=== PATIENT | female | born 1935 | race Caucasian/White ===

== ENCOUNTER 2019-07-31 14:50 | Observation (INO) | payer MEDICARE ==
[~2019-07-31] VITALS: Ht 147.3 cm; Wt 72.6 kg
[~2019-07-31 14:50] MED LIST: ALBU2.5V5 INH; ALBU4ER PO; ALBU90OI PO; ALEN70 PO; Diovan320 MG PO; IPRATROPIUM NEB INH; MONT10T PO; NIAC500ER PO; Pulmicort Fle180 MCG INH; SALM50IP INH
[2019-07-31 15:38] LABS: BASOPHILS PERCENT AUTO 0 % (0-2); EOSINOPHILS ABSOLUTE AUTO 0.01 K/mm3 (0.00-0.68); EOSINOPHILS PERCENT AUTO 0 % (0-6); Hematocrit 22.5 % (33.0-51.0); Hemoglobin 6.3 g/dL (11.5-16.0); IMMATURE GRAN ABSOLUTE AUTO 0.06 K/mm3 (0.00-0.10); IMMATURE GRAN PERCENT AUTO 1 % (0-1); LYMPHOCYTES ABSOLUTE AUTO 0.41 K/mm3 (0.84-5.20); LYMPHOCYTES PERCENT AUTO 5 % (21-46); MONOCYTES ABSOLUTE AUTO 0.58 K/mm3 (0.16-1.47); MONOCYTES PERCENT AUTO 6 % (4-13); Mean Corpuscular HGB 20.4 pg (26.0-34.0); Mean Corpuscular Volume 73 fL (80-100); Mean Platelet Volume 10.1 fL (9.1-12.4); NEUTROPHILS ABSOLUTE AUTO 8.09 K/mm3 (1.96-9.15); NEUTROPHILS PERCENT AUTO 88 % (41-73); NRBC ABSOLUTE 0.03 K/mm3 (0.00-0.02); NRBC Auto 0.3 /100 WBC (0.0-0.2); Platelet Count 280 K/mm3 (150-400); RDW Coefficient Variation 15.9 % (11.7-14.2); RDW Standard Deviation 41.5 fL (35.1-46.3); Red Blood Cell Count 3.09 M/mm3 (3.80-5.20); White Blood Cell Count 9.15 K/mm3 (4.00-11.30)
[2019-07-31 16:01] LABS: Albumin/Globulin Ratio 0.8 (0.8-1.8); Bilirubin, Total 0.4 mg/dL (0.1-1.0); Bun/Creatinine Ratio 27.5 (12.0-20.0); Calcium, Blood 8.4 mg/dL (8.5-10.1); Creatinine, Blood 1.2 mg/dL (0.40-1.00); Globulin, Blood 3.9 g/dL (2.2-4.0); Potassium, Blood 5.4 mmol/L (3.5-5.5); Total Protein, Blood 6.9 g/dL (6.4-8.2); Troponin I 0.041 ng/mL (0.000-0.040)
[2019-07-31] MEDS ORDERED: BUDE10.22 INH (17:21)
[2019-07-31] MEDS ORDERED: Dyazide 37.5-21 EACH PO (17:34)
[2019-07-31] MEDS ORDERED: LOSA50 PO (17:35)
[2019-07-31 19:20] LABS: Percent Saturation 4.1 % (15.0-50.0)
--- NOTE | 2019-07-31 20:56 | NUR ---
PATIENT IS A NEW ADMIT FROM THE ED. AXOX 3 AND ONE ASSIST. PATIENT TRANSFER FROM THE [facility] TO BED WITH TWO ASSIST AND SOB. SPOUSE PRESENT IN ROOM. DENIES CHEST PAIN AND N/V. ON 2L O2 NC STATING 98%. PATIENT ORIENTED TO ROOM AND CALL LIGHT SYSTEM. ONE UNIT PRBC FINISHED IN ED. ED RN REPORTS 20 MG OF LASIX GIVEN IN ED. PATIENT SOB RESOLVED AT REST AND REQUEST TO WATCH TV. CALL LIGHT IN REACH. WILL CONTINUE TO MONITOR.
--- NOTE | 2019-07-31 23:19 | NUR ---
TELEMETRY PLACED. TECH REPORTS SR @82. DENIES CHEST PAIN AND N/V. CALL LIGHT IN REACH.
[2019-08-01 03:50] LABS: BASOPHILS ABSOLUTE AUTO 0.02 K/mm3 (0.00-0.23); BASOPHILS PERCENT AUTO 0 % (0-2); EOSINOPHILS ABSOLUTE AUTO 0.14 K/mm3 (0.00-0.68); EOSINOPHILS PERCENT AUTO 1 % (0-6); Hematocrit 25.9 % (33.0-51.0); Hemoglobin 7.5 g/dL (11.5-16.0); IMMATURE GRAN ABSOLUTE AUTO 0.06 K/mm3 (0.00-0.10); IMMATURE GRAN PERCENT AUTO 1 % (0-1); LYMPHOCYTES ABSOLUTE AUTO 2.17 K/mm3 (0.84-5.20); LYMPHOCYTES PERCENT AUTO 21 % (21-46); MONOCYTES ABSOLUTE AUTO 1.07 K/mm3 (0.16-1.47); MONOCYTES PERCENT AUTO 11 % (4-13); Mean Corpuscular HGB 21.2 pg (26.0-34.0); Mean Corpuscular Volume 73 fL (80-100); Mean Platelet Volume 10.9 fL (9.1-12.4); NEUTROPHILS ABSOLUTE AUTO 6.76 K/mm3 (1.96-9.15); NEUTROPHILS PERCENT AUTO 66 % (41-73); NRBC ABSOLUTE 0.03 K/mm3 (0.00-0.02); NRBC Auto 0.3 /100 WBC (0.0-0.2); Platelet Count 272 K/mm3 (150-400); RDW Coefficient Variation 16.1 % (11.7-14.2); RDW Standard Deviation 42.2 fL (35.1-46.3); Red Blood Cell Count 3.54 M/mm3 (3.80-5.20); White Blood Cell Count 10.22 K/mm3 (4.00-11.30)
[2019-08-01 04:05] LABS: Bun/Creatinine Ratio 24.6 (12.0-20.0); Calcium, Blood 8.4 mg/dL (8.5-10.1); Creatinine, Blood 1.3 mg/dL (0.40-1.00); Potassium, Blood 4.8 mmol/L (3.5-5.5)
--- NOTE | 2019-08-01 04:28 | NUR ---
SHIFT SUMMARY PATIENT HAD NO ACUTE CHANGES OBSERVED THIS SHIFT. AXOX 3AND SBA TO BR. PIV REMAINS INTACT. LIME BOILER REPORTS SR @ 82. DENIES CHEST PAIN, AND N/V. SOB W/EXERTION. ON 2L O2 BITA AND RA AHUMADA. SPOUSE STAYED OVERNIGHT WITH HX OF DEVELOPING ALZHEIMER. PATIENT ANXIOUS ON ADMIT AND SOB WITH TRANSFER FROM [facility] TO BED. NO OTHER EVENTS. [place] AND LEFT HEARING AIDES AT HOME. ED REPORTS ONE UNIT PRBC GIVEN IN ED. PATIENT ABLE TO REST AND WATCH TV. CALL LIGHT IN REACH. BED IN LOWEST POSITION. WILL CONTINUE TO MONITOR UNTIL DAY SHIFT NURSE ASSUMES CARE.
--- NOTE | 2019-08-01 06:22 | NUR ---
BRINE ROOM LABORER REPORTS PATIENT HR INCREASED TO 120. PATIENT NOTED UP TO BR DURING EVENT. BRINE ROOM LABORER MONITOR REPORTS PATIENT CONVERTED TO AFIB 109 FROM NSR. WILL CONTINUE TO MONITOR.
--- NOTE | 2019-08-01 06:52 | NUR ---
CLAM DIGGER REPORTS PATIENT COVERTED TO AFIB 120. HOSPITALIST DR ORTEZ NOTIFED AND ORDERD IV LOPRESSOR 5 MG NOW. CLAM DIGGER NOTIFED AND REPORTS PATIENT CONVERTED BACK TO NSR 79. WILL HOLD IV LOPRESSOR. CONTINUE TO MONITOR.
[2019-08-01] MEDS ORDERED: FERSU300 PO (13:01)
[2019-08-01] MEDS ORDERED: LOSA25 PO (13:01)
[2019-08-01] MEDS ORDERED: FURO40 PO (13:02)
[2019-08-01] MEDS ORDERED: SPIR25 PO (13:02)
--- NOTE | 2019-08-01 15:17 | NUR ---
PATIENT D/C'D TO HOME WITH SPOUSE VIA [employer]. RX MEDICATIONS FAXED TO [facility] AND ARE TO BE DELIEVERED TO PATIENTS HOME. D/C INSTRUCTIONS AND EDUCATIONS DISCUSSED WITH PATIENT AND COPY PROVIDED. PATIENT DENIES ANY FURTHER QUESTIONS OR CONCERNS.
== END 2019-08-01 15:08 | disposition home or self-care (01) ==
LOC: ER 14:50 → MEDS 14:51 → ER 19:01 → MEDS 19:01
PROVIDERS: Emergency Medicine; ADMIT Student in an Organized Health Care Education/Training Program
DX: D50.9 Iron deficiency anemia, unspecified (principal); R06.00 Dyspnea, unspecified; R79.89 Other specified abnormal findings of blood chemistry; J45.909 Unspecified asthma, uncomplicated; R60.9 Edema, unspecified; I12.9 Hypertensive chronic kidney disease with stage 1 through stage 4 chronic kidney disease, or unspecified chronic kidney disease; N18.3 Chronic kidney disease, stage 3 (moderate); E78.5 Hyperlipidemia, unspecified; Z88.6 Allergy status to analgesic agent; Z88.5 Allergy status to narcotic agent; Z88.8 Allergy status to other drugs, medicaments and biological substances; Z79.899 Other long term (current) drug therapy
CPT/HCPCS: 36415; 36430; 71046; 80048; 80053; 82728; 83540; 83550; 83880; 84484; 85025; 86850; 86900; 86901; 86923; 93005; 93010; 93306; 94640; 94760; 96372; 96374; 96376; 99285-25; G0378; J1650; J1940; J7030; P9016

== ENCOUNTER 2020-01-16 00:36 | Day surgery (SDC) | payer MEDICARE ==
[~2020-01-16 00:36] MED LIST changes: +BUDE10.22 INH; +Dyazide 37.5-21 EACH PO; +FERSU300 PO; +FURO40 PO; +LOSA25 PO; +LOSA50 PO; +SPIR25 PO
[2020-01-16] MEDS ORDERED: Ipratropium Bro30 ML INH (14:18)
== END 2020-01-16 17:48 | disposition home or self-care (01) ==
LOC: ATC 00:36
DX: D50.9 Iron deficiency anemia, unspecified (principal); J45.909 Unspecified asthma, uncomplicated; K21.9 Gastro-esophageal reflux disease without esophagitis; E03.9 Hypothyroidism, unspecified; I10 Essential (primary) hypertension; E11.9 Type 2 diabetes mellitus without complications; Z79.51 Long term (current) use of inhaled steroids; E78.2 Mixed hyperlipidemia; Z88.5 Allergy status to narcotic agent; Z88.8 Allergy status to other drugs, medicaments and biological substances; Z79.899 Other long term (current) drug therapy
CPT/HCPCS: 36415; 86850; 86900; 86901; 86923; J7050; P9016

== ENCOUNTER → 2020-01-19 | Outpatient (CLI) | payer MEDICARE ==
[~2020-01-19] MED LIST changes: +Ipratropium Bro30 ML INH
[2020-01-19 15:27] LABS: BASOPHILS ABSOLUTE AUTO 0.02 K/mm3 (0.00-0.23); BASOPHILS PERCENT AUTO 0 % (0-2); EOSINOPHILS ABSOLUTE AUTO 0.28 K/mm3 (0.00-0.68); EOSINOPHILS PERCENT AUTO 4 % (0-6); Hematocrit 32.9 % (33.0-51.0); Hemoglobin 10.1 g/dL (11.5-16.0); IMMATURE GRAN ABSOLUTE AUTO 0.01 K/mm3 (0.00-0.10); IMMATURE GRAN PERCENT AUTO 0 % (0-1); LYMPHOCYTES ABSOLUTE AUTO 0.73 K/mm3 (0.84-5.20); LYMPHOCYTES PERCENT AUTO 11 % (21-46); MONOCYTES ABSOLUTE AUTO 0.77 K/mm3 (0.16-1.47); MONOCYTES PERCENT AUTO 11 % (4-13); Mean Corpuscular HGB 24.4 pg (26.0-34.0); Mean Corpuscular HGB Conc 30.7 g/dL (31.5-36.5); Mean Corpuscular Volume 80 fL (80-100); Mean Platelet Volume 10.9 fL (9.1-12.4); NEUTROPHILS ABSOLUTE AUTO 5.11 K/mm3 (1.96-9.15); NEUTROPHILS PERCENT AUTO 74 % (41-73); Platelet Count 242 K/mm3 (150-400); RDW Coefficient Variation 19.9 % (11.7-14.2); RDW Standard Deviation 56.5 fL (35.1-46.3); Red Blood Cell Count 4.14 M/mm3 (3.80-5.20); White Blood Cell Count 6.92 K/mm3 (4.00-11.30)
== END | disposition home or self-care (01) ==
LOC: LAB EV 15:23 → LAB SHORT 15:23
PROVIDERS: Family Medicine
DX: R60.9 Edema, unspecified (principal)
CPT/HCPCS: 85025

== ENCOUNTER 2020-02-24 16:09 | Emergency (ER) | payer MEDICARE ==
[~2020-02-24] VITALS: Ht 147.3 cm; Wt 52.6 kg
[2020-02-24] MEDS ORDERED: XARELTO15 MG PO (16:32)
== END 2020-02-24 17:09 | disposition home or self-care (01) ==
LOC: ER 16:09
DX: I82.432 Acute embolism and thrombosis of left popliteal vein (principal); I82.452 Acute embolism and thrombosis of left peroneal vein; I82.442 Acute embolism and thrombosis of left tibial vein; J45.909 Unspecified asthma, uncomplicated; E78.5 Hyperlipidemia, unspecified; I12.9 Hypertensive chronic kidney disease with stage 1 through stage 4 chronic kidney disease, or unspecified chronic kidney disease; N18.9 Chronic kidney disease, unspecified; Z79.899 Other long term (current) drug therapy
CPT/HCPCS: 99283

== ENCOUNTER → 2020-02-26 | Outpatient (CLI) | payer MEDICARE ==
[~2020-02-26] MED LIST changes: +CEFD300 PO; +XARELTO15 MG PO
[2020-02-26 12:15] LABS: Creatinine Urine 55.4 mg/dL (27.00-270.00); Protein, Urine Quantitative 9.7 mg/dL (0.0-11.9)
[2020-02-26 12:17] LABS: Microalbumin, Urine Quant. 22.7 mg/L (0.000-20.000)
== END | disposition home or self-care (01) ==
LOC: LAB 10:01 → LAB SHORT 10:01
PROVIDERS: Internal Medicine Nephrology
DX: N18.3 Chronic kidney disease, stage 3 (moderate) (principal); D63.1 Anemia in chronic kidney disease; N25.81 Secondary hyperparathyroidism of renal origin; E55.9 Vitamin D deficiency, unspecified; E78.00 Pure hypercholesterolemia, unspecified; R76.9 Abnormal immunological finding in serum, unspecified; R94.6 Abnormal results of thyroid function studies; R94.5 Abnormal results of liver function studies
CPT/HCPCS: 81050; 82043; 82570; 84156

== ENCOUNTER 2020-04-07 11:47 | Observation (INO) | payer MEDICARE, OTHER ==
[~2020-04-07] VITALS: Ht 134.6 cm; Wt 59.4 kg
[~2020-04-07 11:47] MED LIST changes: -ALBU2.5V5 INH; -ALBU90OI PO; -BUDE10.22 INH; -Ipratropium Bro30 ML INH; -LOSA25 PO; -MONT10T PO
[2020-04-07 12:44] LABS: BASOPHILS ABSOLUTE AUTO 0.01 K/mm3 (0.00-0.23); BASOPHILS PERCENT AUTO 0 % (0-2); EOSINOPHILS ABSOLUTE AUTO 0.02 K/mm3 (0.00-0.68); EOSINOPHILS PERCENT AUTO 0 % (0-6); Hematocrit 36.4 % (33.0-51.0); IMMATURE GRAN ABSOLUTE AUTO 0.05 K/mm3 (0.00-0.10); IMMATURE GRAN PERCENT AUTO 1 % (0-1); LYMPHOCYTES ABSOLUTE AUTO 0.56 K/mm3 (0.84-5.20); LYMPHOCYTES PERCENT AUTO 6 % (21-46); MONOCYTES ABSOLUTE AUTO 0.81 K/mm3 (0.16-1.47); MONOCYTES PERCENT AUTO 9 % (4-13); Mean Corpuscular HGB 22.7 pg (26.0-34.0); Mean Corpuscular HGB Conc 27.5 g/dL (31.5-36.5); Mean Corpuscular Volume 83 fL (80-100); NEUTROPHILS ABSOLUTE AUTO 7.61 K/mm3 (1.96-9.15); NEUTROPHILS PERCENT AUTO 84 % (41-73); NRBC ABSOLUTE 0.05 K/mm3 (0.00-0.02); NRBC Auto 0.6 /100 WBC (0.0-0.2); Platelet Count 174 K/mm3 (150-400); RDW Coefficient Variation 21.2 % (11.7-14.2); RDW Standard Deviation 64.1 fL (35.1-46.3); Red Blood Cell Count 4.41 M/mm3 (3.80-5.20); White Blood Cell Count 9.06 K/mm3 (4.00-11.30)
[2020-04-07 12:58] LABS: Mean Platelet Volume 11.2 fL (9.1-12.4)
[2020-04-07 13:06] LABS: International Normalized Ratio 1.95; Prothrombin Time Results 20.1 Sec (9.7-11.5)
[2020-04-07 13:13] LABS: Albumin, Blood 2.7 g/dL (3.4-5.0); Albumin/Globulin Ratio 0.6 (0.8-1.8); Bilirubin, Total 1.9 mg/dL (0.1-1.0); Bun/Creatinine Ratio 19.5 (12.0-20.0); Calcium, Blood 8.8 mg/dL (8.5-10.1); Creatinine, Blood 5.65 mg/dL (0.40-1.00); Globulin, Blood 4.8 g/dL (2.2-4.0); Potassium, Blood 5.2 mmol/L (3.5-5.5); Total Protein, Blood 7.5 g/dL (6.4-8.2)
[2020-04-07] MEDS ORDERED: Midodrine HCl5 MG PO (14:17)
[2020-04-07] MEDS ORDERED: MEGESTROL400 MG/12 PO (14:18)
[2020-04-07] MEDS ORDERED: TRAM50 PO (14:18)
[2020-04-07] MEDS ORDERED: XARELTO15 M1 PO (14:19)
[2020-04-07] MEDS ORDERED: EUTHYROX50 MC1 PO (14:20)
[2020-04-07] MEDS ORDERED: Pantoprazole So20 MG PO (14:21)
[2020-04-07] MEDS ORDERED: ALLOPURINOL100 M1 PO (14:21)
[2020-04-07] MEDS ORDERED: LOSA25 PO (14:22)
[2020-04-07] MEDS ORDERED: MONT10T PO (14:22)
[2020-04-07] MEDS ORDERED: ALBU2.5V5 NEB (14:25)
[2020-04-07] MEDS ORDERED: Pulmicort Fle180 MCG INH (14:26)
[2020-04-07] MEDS ORDERED: SALM50IP INH (14:27)
[2020-04-07] MEDS ORDERED: ALBU90OI INH (14:50)
[2020-04-07] MEDS ORDERED: IPRATROPIUM BR NEB (14:51)
[2020-04-07] MEDS ORDERED: ALUMINUM H320 MG/5 M PO (14:55)
[2020-04-07 16:11] LABS: PCO2 Arterial 43.2 mmHg (35-45); PO2 Arterial 119 mmHg (80-100); pH Blood Arterial 7.18 (7.35-7.45)
[2020-04-07 16:16] LABS: Source, Urine Clean Catch
[2020-04-07 16:22] LABS: Appearance, Urine Hazy (Clear); Bilirubin, Urine Neg (Neg); Blood, Urine Neg (Neg); Color, Urine Amber (P-Yellow); Glucose Qualitative, Urine Neg (Neg); Ketones, Urine Neg (Neg); Leukocyte Esterase, Urine 1+ (Neg); Nitrite, Urine Neg (Neg); Protein, Urine 3+ (Neg); Urobilinogen, Urine NORM (Normal)
[2020-04-07 16:27] LABS: White Blood Cells, Urine 0-2 /hpf (0-5)
[2020-04-07 16:28] LABS: Amorphous Mod (0-Heavy); Bacteria Few /hpf; Squamous Epithelial Cells Few /hpf (Few)
--- NOTE | 2020-04-07 18:00 | NUR ---
Patient arrived post report from ER nurse. Patient arrived via gurney and intubated without sedation She had 8.0 ET and was 23 cm at lips, settings AC 16, TV 400, FiO2 80% and peeP 5.0 and sats low 90% and declining. Dr Russo Notified. Cerna outside room ready to do Dialysis cath and central line. Patient was infusing Epi at 25 mcg/min and systolics 80'sd. Dr Russo gave order for Levophed titrate and Vasopressin. While they were placing Dialysis cath started Levophed at 5 mcg/min and quickly titrated to 20mcg. By 1800 Dialysis cath in [place] and quad lumen central line Right femoral were placed. Patients sats declineing to 70 with good pleth but worked with positioning of SaO2 sensor on left forehaed and sats up to 80-90%'s.
[2020-04-07 18:37] LABS: pH Blood Arterial 7.17 (7.35-7.45)
[2020-04-07 18:38] LABS: PCO2 Arterial 38.6 mmHg (35-45)
--- NOTE | 2020-04-07 19:00 | NUR ---
Patient has weak and used doppler and found left brachial and left femoral. Dr Russo 1915 started [facility] art line with success and set up pressure line.Sats up and down and DR russo had me increased PEEP to 8, 10, then 14 and she started to ciome up 80-90%'s. Kristina PRESTON assisting and gave report at end of procedure. Placed CHG over [facility] Art line site and started NS bolus 999ml/hr. Patient had 16Fr. Temp sauceda on arrival; with 97.6 temp. Turned care over to Kristina PRESTON
[2020-04-07 19:24] LABS: BASOPHILS ABSOLUTE AUTO 0.02 K/mm3 (0.00-0.23); BASOPHILS PERCENT AUTO 0 % (0-2); EOSINOPHILS PERCENT AUTO 0 % (0-6); Hematocrit 28.3 % (33.0-51.0); Hemoglobin 7.8 g/dL (11.5-16.0); IMMATURE GRAN ABSOLUTE AUTO 0.16 K/mm3 (0.00-0.10); IMMATURE GRAN PERCENT AUTO 1 % (0-1); LYMPHOCYTES ABSOLUTE AUTO 0.18 K/mm3 (0.84-5.20); LYMPHOCYTES PERCENT AUTO 1 % (21-46); MONOCYTES ABSOLUTE AUTO 0.74 K/mm3 (0.16-1.47); MONOCYTES PERCENT AUTO 6 % (4-13); Mean Corpuscular HGB Conc 27.6 g/dL (31.5-36.5); Mean Corpuscular Volume 84 fL (80-100); NEUTROPHILS ABSOLUTE AUTO 11.93 K/mm3 (1.96-9.15); NEUTROPHILS PERCENT AUTO 92 % (41-73); NRBC ABSOLUTE 0.25 K/mm3 (0.00-0.02); NRBC Auto 1.9 /100 WBC (0.0-0.2); RDW Coefficient Variation 21.2 % (11.7-14.2); RDW Standard Deviation 64.8 fL (35.1-46.3); Red Blood Cell Count 3.39 M/mm3 (3.80-5.20); White Blood Cell Count 13.03 K/mm3 (4.00-11.30)
--- NOTE | 2020-04-07 19:25 | NUR ---
ASSESSMENT/ASSUMED CARE PT INTUBATED AND SEDATED. PT NOT RESPONDING TO STIMULI EXCEPT TO TWITCH EYE LIDS WITH ORAL CARE. LUNGS COARSE THROUGHOUT. VENT SETTINGS AC 16 TV 400 PEEP 14 FIO2 100%. HEART RATE REGULAR. PT ON EPI AT 25MCQ/MIN, LEVOPHED AT 30 MCQ/MIN AND VASOPRSSIN AT 0.04 UNITS/KG/MIN FOR BP. AMIODARONE AT 1 MG/MIN UNTIL 2200. DIALYSIS CATH TO RIGHT IJ WITH SODIUM BICARB GTT STARTED AT 200 ML/HR. SEMAJ TO RIGHT AXILLARY. CENTRAL LINE TO RIGHT GROIN. PARTIDA PATENT WITH SCANT DARK YENNY URINE IN TUBE. OG CLAMPED. PT SEDATED ON PROPOFOL AT 15 MCQ/KG/MIN.
[2020-04-07 19:30] LABS: Platelet Count 127 K/mm3 (150-400)
[2020-04-07 19:39] LABS: Albumin, Blood 1.5 g/dL (3.4-5.0); Anion Gap 15 mmol/L (6-16); Blood Urea Nitrogen 97 mg/dL (8-24); Bun/Creatinine Ratio 18.9 (12.0-20.0); CO2, Blood 23 mmol/L (21-32); Calcium, Blood 7.3 mg/dL (8.5-10.1); Chloride, Blood 98 mmol/L (98-108); Creatinine, Blood 5.13 mg/dL (0.40-1.00); Glomerular Filtration Rate 9 (60-); Glucose, Blood 328 mg/dL (70-99); Phosphorus, Blood 7.1 mg/dL (2.5-4.9); Potassium, Blood 4.6 mmol/L (3.5-5.5); Sodium, Blood 136 mmol/L (136-145)
[2020-04-07 20:01] LABS: Bun/Creatinine Ratio 18.9 (12.0-20.0); Calcium, Blood 7.4 mg/dL (8.5-10.1); Creatinine, Blood 5.18 mg/dL (0.40-1.00); Potassium, Blood 4.7 mmol/L (3.5-5.5)
--- NOTE | 2020-04-07 21:20 | NUR ---
NIMBEX STARTED NIMBEX AT 2 MCQ/KG/MIN.
--- NOTE | 2020-04-07 21:50 | NUR ---
Upon receiving a call-back, I enter patient's room. Patient's family are bedside. I conduct a life review of patient, learn patient's catholic preference (Sabianist) and discover families purpose for a request for spiritual care. I listen empathically, provide anticipatory grief support and provide a calming presence and a "last rites" type of prayer. Family respond well and thank me for the time and prayer.
[2020-04-07 22:21] LABS: PO2 Arterial 55.7 mmHg (80-100)
--- NOTE | 2020-04-07 22:22 | NUR ---
DR SHORE SPOKE WITH DR SHORE REGARDING ABG. RECEIVED ORDER FOR VENT CHANGES PC 20 TV 300-350 PEEP 18. RT NOTIFIED.
--- NOTE | 2020-04-07 23:01 | NUR ---
DIALYSIS TALKED TO DR HEWITT, HE WANTED SOME MEDS GIVEN BY BILINGUAL TEACHER AIDE AND LABS DRAWN AND RESULTS CALLED TO HIM BEFORE I STARTED THE DIALYSIS TREATMENT. SPOKE ON THE PHONE WITH PT'S DAUGHTER ABOUT NOT STARTING DIALYSIS. DAUGHTER WANTED EVERYTHING DONE. AFTER REPORTING THE LABS TO DR HEWITT, HE SAID HE WANTED ME TO START BY GIVING 2 ALBUMINS IMMEDIATELY AND THEN TO GIVE 2 WITH THE TREATMENT. PT IS MAX OUT ON MEDS FOR BP, BREATHING AND HEART RATE. STARTED DIALYSIS WITH ALBUMIN. NO IMPROVEMENT NOTED. WHEN TX COMPLETED, BILINGUAL TEACHER AIDE SAID I SHOULD GET MY MACHINE OUT SOON POSSIBLE.
[2020-04-07 23:24] LABS: PCO2 Arterial 46.7 mmHg (35-45); PO2 Arterial 46.6 mmHg (80-100); pH Blood Arterial 7.29 (7.35-7.45)
--- NOTE | 2020-04-08 00:32 | NUR ---
DR SHORE BLOOD GLUCOSE 520, CALL TO DR SHORE. NO ORDERS AT THIS TIME. FAMILY AT BEDSIDE.
[2020-04-08 00:49] LABS: Bun/Creatinine Ratio 17.5 (12.0-20.0); Calcium, Blood 6.7 mg/dL (8.5-10.1); Creatinine, Blood 3.08 mg/dL (0.40-1.00)
--- NOTE | 2020-04-08 01:16 | NUR ---
PT PT WENT INTO [facility], CPR STARTED AT 0045. RT BAGGING PT. SHAN AT BEDSIDE STATED,"PLEASES STOP, JUST LET HER GO". CPR STOPPED. DR ORTEZ TO BEDSIDE. [place] CALLED [phone].
== END 2020-04-08 03:00 ==
LOC: ER 11:47 → ICUE 15:25 → PCU 15:25 → ICUE 16:46
PROVIDERS: Internal Medicine Nephrology; Physician Assistant; ADMIT Internal Medicine
DX: I46.9 Cardiac arrest, cause unspecified (principal); J45.909 Unspecified asthma, uncomplicated; I12.9 Hypertensive chronic kidney disease with stage 1 through stage 4 chronic kidney disease, or unspecified chronic kidney disease; E78.00 Pure hypercholesterolemia, unspecified; Z79.01 Long term (current) use of anticoagulants; I35.0 Nonrheumatic aortic (valve) stenosis; R09.02 Hypoxemia; N18.4 Chronic kidney disease, stage 4 (severe); K21.9 Gastro-esophageal reflux disease without esophagitis; D50.9 Iron deficiency anemia, unspecified; Z88.6 Allergy status to analgesic agent; Z88.5 Allergy status to narcotic agent; Z88.8 Allergy status to other drugs, medicaments and biological substances; Z79.899 Other long term (current) drug therapy; E83.39 Other disorders of phosphorus metabolism; I95.9 Hypotension, unspecified
CPT/HCPCS: 31500; 31720; 36415; 36556; 36558; 36600; 36620; 51702; 71045; 76937; 80048; 80053; 80069; 81001; 82330; 82435; 82803; 82947; 83690; 83735; 84132; 84295; 85025; 85610; 87086; 92950; 93005; 93010; 94002; 96361-59; 96365-59; 96366; 96368; 96375; 96375-59; 96376; 96376-59; 99152; 99153; 99291-25; 99292; C1751; C1752; C1769; C1894; C9113; G0257; G0378; J0171; J0282; J0330; J1644; J2543; J2704; J3370; J3475; J7030; J7040; J7050; J7060; J7070; P9046; Q9967; U0002